=== PATIENT | female | born 1950 | race Caucasian/White ===

== ENCOUNTER 2019-11-04 06:06 | Inpatient (IN) | payer MEDICARE, OTHER, MEDICAID, SELFPAY ==
[2019-10-28 09:54] VITALS: BMI 25.9
[2019-11-04] VITALS (18 sets, daily range): BP systolic 97–145; BP diastolic 45–80; PULSE 77–103; RESP 9–20; TEMP 35.9–36.7; O2SAT 92–100; BMI 25.4
--- NOTE | 2019-11-04 | DI.RAD.S_ITS ---
PROCEDURE: XR LUMBAR SPINE 2-3V INDICATIONS: L4-S1 HWR, L5-S1 TLIF TECHNIQUE: 2 views of the lumbar spine were acquired. COMPARISON: [facility], CT, CT LUMBAR SPINE WITHOUT CONTRAST, 08/13/2019, 9:39. [facility], CR, XR LUMBAR SPINE 2 OR 3 VIEWS, 07/28/2019, 10:44. FINDINGS: There is no discectomy at L5-S1. Previous discectomy at L3-L4 and L4-L5. There is posterior fusion and revision of fusion hardware foam L3-S1. IMPRESSION: Postsurgical changes as described. Dictated by: Dillon James M.D. on 11/04/2019 at 14:52 Approved by: Dillon James M.D. on 11/04/2019 at 14:55
[2019-11-04] MEDS: LACTATED RINGERS 1,000 ML 42 ML IV ×2 (07:33→10:41)
--- NOTE | 2019-11-04 07:40 | PM.PREOP ---
Pre-operative Note Interval Note History & Physical reviewed/Exam performed by Physician: Yes Changes to H&P: No
[2019-11-04] MEDS: CEFAZOLIN 2 GM/100 ML FROZ.PIGGY IV (07:52)
--- NOTE | 2019-11-04 08:28 | SUR.OPER ---
Prone on spine table, head in foam head support, padded chest and pelvic supports, gel pad at knees, lower legs supported by pillows; nipples, genitalia and toes free of pressure, arms secured on foam padded arm boards at <90 degrees abduction. Tape over blanket at thigh secured to table.
[2019-11-04] MEDS: BUPIVACAINE 0.25% W/ EPI 30 ML VIAL INJ (08:40)
[2019-11-04] MEDS: BUPIVACAINE LIPOSOME 266 MG/20 ML VIAL INJ (08:41)
--- NOTE | 2019-11-04 11:39 | P.OP_ITS ---
Operative Date/Time/Diagnoses Date of procedure: 11/04/19 Time of procedure: 08:09 Pre-op diagnosis: 1. L4-5, L5-S1 spinal stenosis 2. Hx of L3-4, L4-5 lumbar fusion with instrumentation 3. L5-S1 spondylosis with radiculopathy Post-op diagnosis: same Procedure & Clinicians Procedure: 1. L5-S1 posterolateral and posterior interbody fusion 2. L5-S1 posterior interbody cage placement 3. L3-4, L4-5 posterior segmental instrumentation removal 4. L3-4, L4-5 revision laminectomy with exploration of fusion 5. L3-4, L4-5, L5-S1 posterior segmental instrumentation with pedicle screw placement 6. L4-5 posterolateral fusion 7. Hornbeck of bone marrow from iliac crest through a separate incision 8. Utilization of microsurgical technique and operating microscope Same procedure as scheduled: Yes Indications: Patient has been having chronic back pain and worsening lumbar radiculopathy. Patient had prior lumbar fusion and was having no symptoms until approximately a year ago. Patient failed multiple conservative management with worsening pain weakness and numbness in her lower extremity. Patient has been having difficulty performing activity of daily living. After discussing risks benefits of treatment options, patient elected proceed with surgery. Surgeon: Geoff Carcamo Tape Fastener Machine Operator: Espinoza Squires Click Yes if Unassisted: No Anesthesia Type: General Operative Notes Closure Type: primary Specimen(s): none sent Prosthetic devices, grafts, tissues, transplants, or devices: Globus revolve screws, Rise cage Applied: catheter Estimated Blood Loss (mL): 100 Blood products transfused: none Procedure in detail: Patient was seen in the preoperative area. Risks and benefits of the surgery was discussed with the patient. Informed consent was obtained from the patient and placed in the chart. Surgical site was marked. Patient was taken to the operative room. General anesthesia was administered. Prophylactic antibiotic was given to the patient less than 30 min before the incision was made. Patient was placed into a prone position on the [place] table. Patient's back was then prepped and draped in the sterile fashion. Time- out was performed at this time. Using patient's previous scar incision was made over the L3-4 L4-5 L5-S1 interval on the right side. Fascia was incised in line with skin incision. Patient's previously placed hardware over the L3-4 L4-5 level was identified by dissecting down to the level the hardware using a Bovie and a Varma. The locking caps which was removed using globus screwdriver. The locking jarocho was then removed from the tulips of the pedicle screws using a Yohana. The pedicle screws were then removed using the screwdriver. The screws were found to have good purchase. The Globus and MARS retractors was then placed into the wound and docked onto the L5 lamina using C-arm guidance. Using microsurgical technique and operating microscope a laminectomy facetectomy was performed by removing the L5 lamina and the L5-S1 facet. The disc space at L5-S1 level was identified next. Patient was found have severe neuroforaminal stenosis secondary to a large facet joint. The stenosis was fully decompressed after the facetectomy was completed which rendered L5-S1 grossly unstable and require a fusion procedure at the same time. And a total diskectomy was performed at L5-S1 level. The endplates were decorticated using a rasp and shaver. The total diskectomy and decortication was performed at L5-S1 level in order to to accomplish a L5-S1 fusion. The local bone from the laminectomy and facetectomy was saved for local bone grafting. After the total diskectomy and decortication was completed, Globus viacell bone graft material was combined with local bone that was harvested earlier. At this time, a separate skin is incision was made over the iliac crest. A Jamshidi needle was inserted into the iliac crest through a separate skin incision. 5 cc of bone marrow aspiration was obtained through the separate skin incision using a Jamshidi needle from the iliac crest. The bone marrow aspiration was combined with local bone and the via cell bone grafting material. The bone grafting material was placed into the L5-S1 interbody space along with a expandable cage. The cage was expanded to its maximum height using the torque limiting screwdriver. At this time a mirror image incision was made on the left side. The fascia was incised in line with the skin incision. Patient's previously placed hardware on the left side was then removed in the same fashion as it was on the right side. The hardware was also found to have good purchase. The fusion mass on the left side was exposed by performing a left-sided hemilaminectomy at L3-4 L4-5 level. The hemilaminectomy was performed using the Kerrison rongeur to undercut the lamina as well removing additional epidural scar tissue for purpose of decompressing the epidural space. The fusion mass was explored and was found have visible motion indicating pseudoarthrosis at L4-5 level and had no motion at L3-4 indicating solid fusion. Globus MARS retractor was inserted and docked onto the L4-5 L5-S1 posterolateral gutter. Using the power drill, posterior- lateral decortication was performed at L4-5 L5-S1 level until bleeding cortical bone was identified. The remaining bone grafting material was placed into the L4-5 L5-S1 posterior lateral gutter he order to accomplish posterolateral fusion at the L4-5 L5-S1 level. Using the double C-arm technique, pedicle screws were placed into the L3, L4 L5 and S1 pedicles bilaterally. This was done by placing the Jamshidi needle into t he pedicles, then placing the guidewires over the Jamshidi needle, and finally placing the cannulated screws over the guidewires bilaterally. After the pedicle screws were placed, 2 titanium rods was locked into the heads of the pedicle screws using locking caps and torque limiting screwdriver. After all the hardware was placed, and confirmed with AP and lateral C-arm imaging, the wound was then irrigated with sterile normal saline and packed with Ray-Nicky gauze for 3 min to accomplish hemostasis. After the gauze was removed the deep fascia was closed with #1 Vicryl suture. The subcutaneous layer was closed with 2-0 Vicryl. The skin was closed with skin manish. Patient tolerated the procedure well. There were no complications. Complications: none Post-operative Condition: stable Disposition: PACU Plan for aftercare: Admit to inpatient hospital
[2019-11-04] MEDS: HYDROMORPHONE 2 MG INJ IV ×4 (12:10→12:33)
[2019-11-04] MEDS: hydrOXYzine 50 MG/ML INJ IM (12:14)
--- NOTE | 2019-11-04 12:34 | SUR.PHASEI ---
Report given to Alexandria ESPARZA .
--- NOTE | 2019-11-04 13:00 | SUR.PHASEI ---
Received report from ISAIAS Garcia. Patient appears comfortable. VSS.
--- NOTE | 2019-11-04 13:02 | SUR.PHASEI ---
Report given to Zehra Acute care RN. Patient OK to transfer.
[2019-11-04] MEDS: SODIUM CHLORIDE 0.9% 1,000 ML 100 ML IV (14:08)
--- NOTE | 2019-11-04 15:13 | CM.DANOTE ---
DCP Brief Assessment Note Patient is a 69 year old female who was admitted today 11/04/19 for TLIF. Pt has MCR and PRE DIM for insurance and her PCP is Dr. Mihaela Sanders. EMR was reviewed. Per Alexandre GOODWIN, pt scheduled for TLIF today. Pt has a hx of previous back surgery in 2016 and was able to d/c home at that time. SW attempted bedside assessment and was off the floor all day in surgery still at 1515. Plan: SW to follow tomorrow for bedside assessment and follow for PT/OT initial eval and recommendations to determine d/c planning needs. DELANEY Marin
--- NOTE | 2019-11-04 15:23 | PC.NURSE ---
Ortho: Pt received from pacu, had 4 doses of dilaudid, sleepy, O2 placed, pt has hx of sleep apnea and would desat to the 80's when she fell asleep. On arrival did drop to about 87-88 and did have O2 on at 2L NC which kept sats at 97% or greater. later able to wean O2 off and sats are 95% currently. pt has denied pain since arrival to floor. Resting quietly at present.
[2019-11-04] MEDS: CEFAZOLIN 1 GM/50 ML FROZ.PIGGY IV (16:51)
[2019-11-04] MEDS: hydrOXYzine pamoate 25 MG CAPSULE PO (18:09)
[2019-11-04] MEDS: OXYCODONE IR 5 MG TABLET 10 MG PO ×2 (18:10→22:10)
[2019-11-04] MEDS: HYDROMORPHONE 0.5 MG INJ IV (19:35)
[2019-11-04] MEDS: SENNOSIDES 8.6 MG TABLET 17.2 MG PO (22:08)
[2019-11-04] MEDS: DOCUSATE 100 MG CAPSULE PO (22:09)
[2019-11-04] MEDS: SERTRALINE 25 MG TABLET PO (22:20)
--- NOTE | 2019-11-04 22:36 | PC.NURSE ---
A&Ox4. pain 04/01, medicated with oxycodone, reassessed 04/01. Administered 0.5mg IV dilaudid, pain down to 4/10 and tolerable. IS teaching done by student RN. LS:clear. 96%RA. Polk patent, draining clear yellow urine. denied any tingling or numbness of arms or legs. pt not oob yet. feet scds on.
--- NOTE | 2019-11-04 23:01 | PC.NURSE ---
Pain Management Patient's goal for pm shift was to manage pain. Patient reported a pain level of 8. Student nurse and primary nurse administered oxycodone Ir 10 mg PO at 181. Patient reported pain had reduced to pain level of 7. Primary nurse administered hydromorphone 0.5 mg IV at 193. Patient reported a pain level of 5 at reassessment. Patient had a turkey sandwich, chocolate ice cream, and jello for a late dinner.
[2019-11-05] VITALS (8 sets, daily range): BP systolic 95–154; BP diastolic 51–92; PULSE 88–97; RESP 12–20; TEMP 36.7–37.9; O2SAT 95–98
[2019-11-05] MEDS: SODIUM CHLORIDE 0.9% 1,000 ML 100 ML IV (00:08)
[2019-11-05] MEDS: CEFAZOLIN 1 GM/50 ML FROZ.PIGGY IV (00:09)
[2019-11-05] MEDS: HYDROMORPHONE 0.5 MG INJ IV ×3 (01:03→12:06)
--- NOTE | 2019-11-05 05:28 | PC.NURSE ---
Pt alert and oriented x4. Turning self in bed. Pain controlled with giving IV dilaudid. Pt denies offer for oxycodone, reports I do not like the way the oxycodone makes me feel. Back dressing saturated at start of shift, dressing changed. Clean dry and intact now. Pt tolerated well. Scds applied. Pt has no complaints at this time
[2019-11-05] MEDS: OXYCODONE IR 5 MG TABLET 10 MG PO ×3 (06:44→20:36)
[2019-11-05 07:06] LABS: Hematocrit 37.4 % (36-46); Hemoglobin 12.5 g/dL (12.0-16.0)
--- NOTE | 2019-11-05 07:39 | PM.PNPO.1 ---
Subjective Subjective Date Patient Seen: 11/05/19 Time Patient Seen: 07:39 Interval history: POD #1 s/p TLIF with Dr. Carcamo. No acute events overnight. Patient complains of pain in her lower back, denies radiation down her legs. Denies numbness, tingling. Has not mobilized with PT. Using paris catheter. Denies fever, chills, chest pain, shortness of breath Exam Vital Signs (past 8 hours): - 11/05/19 00:05 11/05/19 04:55 Temperature 98.0 F 98.7 F Pulse Rate 94 H 88 Respiratory Rate 16 16 Blood Pressure 154/65 H 140/68 Pulse Oximetry 98 97 Oxygen Delivery Method Room Air Oxygen Flow Rate 0 Narrative Exam Narrative: 69 year old female is lying comfortably in bed, in no apparent distress. A&Ox3. Dressing CDI, SCDs and paris catheter in place. Sensory function grossly intact to light touch in LE BL. Dorsalis pedis 2+ BL. Able to actively dorsiflex/plantar flex BL. Calves warm, soft, compressible, non tender to palpation. Objective Labs Result Diagrams: 11/05/19 06:47 Labs: Laboratory Results - last 24 hr 11/05/19 06:47 Hgb 12.5 Hct 37.4 Assessment & Plan Post-op Postoperative Procedures: Procedures Operation Date: 11/04/19 07:45 Actual Procedures Side Surgeon p L4-S1 HWR removal,L5-S1 TLIF,L4-5 exploration of fusion w/poss revision PSF,L3-S1 posterior instru Geoff Carcamo MD Postoperative day: 1 Postoperative plan narrative: Discontinue paris catheter Mobilize with PT Continue current pain control Continue SCDs for DVT management Discharge home likely in next 24-48 hours Time Spent With Patient Time with patient: less than 15 minutes
[2019-11-05] MEDS: DOCUSATE 100 MG CAPSULE PO ×2 (09:13→20:35)
[2019-11-05] MEDS: LEVOTHYROXINE 137 MCG TABLET PO (09:13)
--- NOTE | 2019-11-05 09:50 | PT.IIE ---
Current Diagnoses Other spondylosis with radiculopathy, lumbar region (11/04/19) Spinal stenosis, lumbar region without neurogenic claudication (11/04/19) Arthrodesis status (11/04/19) Surgery Performed Operation Date: 11/04/19 07:45 Actual Procedures p L4-S1 HWR removal,L5-S1 TLIF,L4-5 exploration of fusion w/poss revision PSF,L3-S1 posterior vida Carcamo MD Surgical History (Last Updated 10/28/19 @ 11:47 by Dian Flores RN) H/O wrist surgery (Acute ~2014) H/O: hysterectomy (Acute) History of bilateral tubal ligation (Acute) History of bladder surgery (Acute) History of lumbar fusion (Acute ~2013) History of lumbar spinal fusion (Acute 04/16/16) Hx of bilateral cataract extraction (Acute) Hx of breast augmentation (Acute) Hx of thyroidectomy (Acute) Status post implant removal from both breasts (Acute 10/03/16) Status post implant removal from both breasts (Acute ~11/2018) Medical History (Last Updated 10/29/19 @ 14:59 by Dian Flores RN) Afib (Acute ~2011) Cervical cancer (Acute ~1972) Chronic cough (Acute) Depression (Acute) Fatty liver (Acute) Former smoker (Acute) History of anesthesia reaction (Acute 10/03/16) History of Clostridium difficile infection (Acute ~2017) HLD (hyperlipidemia) (Acute) Sleep apnea (Acute) Thyroid cancer (Acute) Physical Therapy Inpatient Evaluation/Re-Eval M1 PT/OT-IP Prior Functional Status Start: 11/05/19 12:00 Freq: NEEDED Status: Active Protocol: Document 11/05/19 09:50 AB (Rec: 11/05/19 12:15 AB [id number]) Medical Review Prior Functional Status Medical History Reviewed Yes Communication able to make needs known Mobility and Gait pt stated that she is independent with all mobilities and ambulation without AD Social History Household Members significant other Living Arrangements House Number of Floors (Floors) One Floor Number of Stairs To Enter/Railing? 3 steps to enter without rails Home Environment Standard Height Toilet,Walk in Shower,Tub/Shower Home Equipment Front Wheel Walker,Hand Held Shower M2 PT-IP Current Condition Start: 11/05/19 12:00 Freq: NEEDED Status: Active Protocol: Document 11/05/19 09:50 AB (Rec: 11/05/19 12:15 AB [id number]) Physical Therapy Current Condition Current Condition Evaluation Date 11/05/19 Treatment Diagnosis s/p L5S1 posterior fusion; L3- 5 lami; difficulty in walking Onset Date 11/04/2019 Precautions Lumbar Precautions Log Roll,No Twisting,Limit Bending,Lifting Restriction of 10 lbs,Gait Belt above Incisional Area M3 PT-IP Subjective Start: 11/05/19 12:00 Freq: NEEDED Status: Active Protocol: Document 11/05/19 09:50 AB (Rec: 11/05/19 12:15 AB [id number]) Subjective Physical Therapy Visit Type Type Initial Evaluation Visit Start Time 09:50 Visit Stop Time 10:29 Total Visit Minutes 39 Number of NETWORK DIAGNOSTIC SUPPORT SPECIALIST Visits 0 Physical Therapy Visit Comments Patient Comments pt agreeable to do PT Therapy Pain Assessment Pain When Pain Assessed At Rest Pain Present Pain Present Pain Reported Location Left Leg Intensity 5 Scale Used increases to 7/10 with mobility Pain Management Techniques Apply Cold,Re-positioning, Timing of Activity with Medications M4 PT-IP Mobility and Gait Start: 11/05/19 12:00 Freq: NEEDED Status: Active Protocol: Document 11/05/19 09:50 AB (Rec: 11/05/19 12:15 AB [id number]) PT-Bed Mobility Assessment Rolling Type of Rolling Log Rolling Level of Assist Moderate Assistance,1 Person Assistance Supine to Sit Supine to Sit Minimal Assistance,1 Person Assistance PT-Transfer Assessment Sit to and From Stand Sit to and from Stand Minimal Assistance,1 Person Assistance,Use of Upper Extremities Equipment Transfer Assistive Device Gait Belt,Front Wheeled Walker Orthotic/Prosthetic Devices or Brace: No Transfers Transfer Destination Chair Transfer Technique ambulated using FWW Transfer Ability Level of Assist Minimal Assistance,1 Person Assistance,Use of Upper Extremities Comments Mobility Comments reviewed back precautions and log roll bed mobility with pt. completed supine to sit mod A and cues. pt was able to sit on EOB SBA. completed sit to stand min A and cues and pt ambulated in room using FWW ~ 25 ft min A. pt agreed to sit up on chair. positioned pt on chair. call light and table placed within reach. Gait Assessment Gait Gait Assistance Required: Minimum Assistance Distance (Feet) 25 Able to Maintain Weight Bearing Status Yes During Gait Assistive Devices Assistive Device Gait Belt,Front Wheeled Walker Orthotic/Prosthetic Devices or Brace: No Gait Deviations General Gait Pattern Antalgic,Decreased Stride Length,Decreased Feet Clearance Factors Limiting Gait Function Factors Limiting Gait Function Decreased Activity Tolerance, Decreased Strength,Limited Range of Motion,Pain,Poor Balance,Poor Safety Awareness PT-Balance Assessment Sitting Balance and Reactions Static Sitting Balance Ability Good Dynamic Sitting Balance Ability Good Standing Balance and Reactions Static Standing Balance Ability Fair Dynamic Standing Balance Ability Fair Device Used FWW M5 PT-IP Objective Assessments Start: 11/05/19 12:00 Freq: NEEDED Status: Active Protocol: Document 11/05/19 09:50 AB (Rec: 11/05/19 12:15 AB [id number]) Orientation Orientation/Cognition Level of Alertness Alert Orientation Name,Place,Situation Safety Awareness Decreased Safety Awareness Gross Range of Motion Lower Extremity ROM Assessment Within Functional Limits Strength Comments Strength Comments RLE: 3+/5 LLE: 4-/5 Coordination Assessment Gross Coordination Gross Coordination WNL Muscle Tone Muscle Tone WNL Yes M6 PT-IP Treatment Start: 11/05/19 12:00 Freq: NEEDED Status: Active Protocol: Document 11/05/19 09:50 AB (Rec: 11/05/19 12:15 AB [id number]) Physical Therapy Treatment Education Education Provided Precautions,Weight Bearing Status,Post-Op Packet,Safety M7 PT-IP Assessment and Plan Start: 11/05/19 12:00 Freq: NEEDED Status: Active Protocol: Document 11/05/19 09:50 AB (Rec: 11/05/19 12:15 AB [id number]) PT Summary Assessment and Plan Potential Rehabilitation Potential Good Status of Condition at Evaluation Evolving Summary Impairments Pain,ROM,Strength,Balance, Coordination,Sensation,Tone, Cognition,Bed Mobility, Transfers,Gait,Activity Tolerance Assessment Summary pt requiring min A with transfers an ambulation using FWW but did not tolerate much activity due to c/o increasing back pain. pt plans to go home with her significant other to assist her. will conduct caregiver training when appropriate as well as stair climbing training. will continue to assess progress. Goals Bed Mobility Goal Standby Assistance Transfer Goal Standby Assistance,Front Wheeled Walker Gait Goal Standby Assistance,Front Wheel Walker Gait Distance 150 Other Goals up/down 3 steps using SPC/MANAGER CONSTRUCTION CGA Days to Meet Goals 5 Frequency of Treatment Frequency Of Treatment Twice a Day Treatment Plan Physical Therapy Treatment Plan Bed Mobility Training,Transfer Training,Gait Training, Therapeutic Exercise,Balance Retraining,Post Op Education, Discharge Planning,Hot or Cold Pack,Neuromuscular Re-ed, Coordination Retraining,Manual Therapy Other Recommendations and Next Treatment ambulation, stair climbing, Focus caregiver training when appropriate Recommendations To Nursing Amount of Assist Needed 1 Person Assist Discharge Recommendations PT Discharge Recommendations Home with Assistance Transportation Needs at Discharge Private Vehicle
[2019-11-05] MEDS: ACETAMINOPHEN 325 MG TABLET 650 MG PO (10:19)
[2019-11-05] MEDS: hydrOXYzine pamoate 25 MG CAPSULE PO (12:27)
--- NOTE | 2019-11-05 13:05 | PT-IP ANOTE ---
Checked on pt at 1300 who was in bed. Pt stated she's in a lot of pain after walking in the am and requested to have some rest for today and attempt PT again tomorrow morning.
--- NOTE | 2019-11-05 14:40 | OT.IP.EVAL ---
Current Diagnoses Other spondylosis with radiculopathy, lumbar region (11/04/19) Spinal stenosis, lumbar region without neurogenic claudication (11/04/19) Arthrodesis status (11/04/19) Surgery Performed Operation Date: 11/04/19 07:45 Actual Procedures p L4-S1 HWR removal,L5-S1 TLIF,L4-5 exploration of fusion w/poss revision PSF,L3-S1 posterior vida Carcamo MD Past Medical History (Last Updated 10/29/19 @ 14:59 by Dian Flores, RN) Afib (Acute ~2011) Cervical cancer (Acute ~1972) Chronic cough (Acute) Depression (Acute) Fatty liver (Acute) Former smoker (Acute) History of anesthesia reaction (Acute 10/03/16) History of Clostridium difficile infection (Acute ~2017) HLD (hyperlipidemia) (Acute) Sleep apnea (Acute) Thyroid cancer (Acute) Surgical History (Last Updated 10/28/19 @ 11:47 by Dian Flores RN) H/O wrist surgery (Acute ~2014) H/O: hysterectomy (Acute) History of bilateral tubal ligation (Acute) History of bladder surgery (Acute) History of lumbar fusion (Acute ~2013) History of lumbar spinal fusion (Acute 04/16/16) Hx of bilateral cataract extraction (Acute) Hx of breast augmentation (Acute) Hx of thyroidectomy (Acute) Status post implant removal from both breasts (Acute 10/03/16) Status post implant removal from both breasts (Acute ~11/2018) Occupational Therapy Inpatient Evaluation/Re-Eval M1 PT/OT-IP Prior Functional Status Start: 11/05/19 12:00 Freq: NEEDED Status: Active Protocol: Document 11/05/19 14:40 VINCENT (Rec: 11/05/19 15:08 VINCENT [id number]) Medical Review Prior Functional Status Medical History Reviewed Yes Diet/Fluid Consistency Regular Communication WNL Mobility and Gait Pt states she is independent with ambulation without a device. Activities of Daily Living and IADL's Pt states she is independent with all self care, IADLS, drives. 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 3 steps to enter without rails Home Environment Standard Height Toilet,Walk in Shower,Tub/Shower Home Equipment Front Wheel Walker,Shower Seat without Backrest,Hand Held Shower,Matcher Operator Employment Status Retired Additional Social History Comment S.O. taking one day off work, niece will stay with pt for 3 days after S.O. returns to work M2 OT-IP Current Condition Start: 11/05/19 08:28 Freq: Status: Active Protocol: Document 11/05/19 14:40 PJM (Rec: 11/05/19 15:08 PJM [id number]) Occupational Therapy Current Condition Current Condition Evaluation Date 11/05/19 Treatment Diagnosis decreased ADLS, mobility s/p L4-S1 hardware removal, L5-S1 TLIF Diagnosis Onset Date 11/04/19 Post Operative Precautions Lumbar Precautions Log Roll,No Twisting,Limit Bending,Lifting Restriction of 10 lbs,Gait Belt above Incisional Area M3 OT- IP Subjective and Pain Start: 11/05/19 08:28 Freq: Status: Active Protocol: Document 11/05/19 14:40 PJM (Rec: 11/05/19 15:08 PJM [id number]) OT- Subjective Occupational Therapy Visit Type Type Initial Evaluation Visit Start Time 13:58 Visit Stop Time 14:40 Total Visit Minutes 42 Notes Pt drowsy from pain meds this session. Occupational Therapy Visit Comments Patient Comments The nurse has given me a lot of pain medicine. It's making me feel a little loopy. Patient/Caregiver Goals to return to independent living at home with less back/ leg pain OT Pain Assessment Pain When Pain Assessed After Treatment Pain Present Pain Present Pain Reported Location Bilateral Anterior Thigh Intensity 3 Scale Used increases to 8/9 with activity Description Aching,Acute Left Leg Scale Used Numeric (1 - 10) M4 OT- IP ADL's Start: 11/05/19 08:28 Freq: Status: Active Protocol: Document 11/05/19 14:40 PJM (Rec: 11/05/19 15:08 PJ [id number]) OT [id number] General Evaluation Self-Feeding Ability Independent OT ADL-Grooming General Evaluation Grooming Ability Standby Assistance Comments OT Grooming Comments washing hands at sink with FWW , mod verbal cues for FWW use and body mechanics OT ADL-Oral Care Comments Oral Care Comments did not occur this session OT ADL-Dressing Assistive Devices Dressing Assistive Devices Matcher Operator Comments OT Dressing Comments Began education re: adapted techniques with maintenance repairman and sock aid.Pt declined sock aid as she rarely wears socks and will wear Birkenstocks at home . Pt has maintenance repairman from previous surgeries. OT ADL-Toileting General Evaluation Toileting Ability Standby Assistance Areas Needing Assistance Perform Perineal Hygiene Comments OT Toileting Comments mod verbal ceus for body mechanics OT ADL-Bathing Comments OT Bathing Comments to be assessed M5 OT- IP IADL's Start: 11/05/19 08:28 Freq: Status: Active Protocol: Document 11/05/19 14:40 PJM (Rec: 11/05/19 15:08 [facility] [id number]) OT-Instrumental Activities of Daily Living Deficits IADL Deficits Identified Deficits Home Safety Awareness Awareness of Need for Assistance at Home Good Awareness Ability to Problem Solve Emergency Able to Problem Solve Situations Medication Management Medication Management No Deficits Identified Money Management Money Management No Deficits Identified Meal Preparation Meal Preparation Caregiver Provides Assist Meal Preparation Comments S.O. to assist until pt able Pharmacy Operations Specialist Pharmacy Operations Specialist Caregiver Provides Assist Pharmacy Operations Specialist Comments S.O. to assist until pt able Driving Driving Caregiver Provides Assist Driving Comments S.O. to assist until pt able M6 OT- IP Functional Cognition Start: 11/05/19 08:28 Freq: Status: Active Protocol: Document 11/05/19 14:40 PJM (Rec: 11/05/19 15:08 [facility] [id number]) Cognitive Factors Limiting Selfcare Function Cognitive Ability Level of Alertness Drowsy Patient Orientation Name,Age,Birthday,Month,Date, Year,Day of Week,Place, Situation Attention Span Ability Capable of Focused Attention Ability to Follow Commands Able to Follow One Step Commands Safety Awareness Decreased Ability to Apply Precautions Cognitive Comments Cognitive Assessment Comments Pt verbalizes lumbar precautions but needs mod verbal cues to follow them duirng functional tasks. OT- Vision and Hearing OT- Hearing Assessment OT- Hearing Assessment WFL OT- Vision Assessment Visual Acuity WFL,Glasses For Reading M7 OT- IP Mobility and Balance Start: 11/05/19 08:28 Freq: Status: Active Protocol: Document 11/05/19 14:40 PJM (Rec: 11/05/19 15:08 [facility] [id number]) OT- Bed Mobility Assessment Rolling Type of Rolling Log Rolling,Roll to Right,Roll to Left Level of Assistance Contact Guard Assistance, Bedrails Supine to Sit Supine to Sit Assist Contact Guard Assistance Sit to Supine Sit to Supine Assist Contact Guard Assistance Scooting Scooting to Edge of Bed Standby Assistance OT-Transfer Assessment Sit to and From Stand Sit to and from Stand Contact Guard Assistance,1 Person Assistance Transfers Transfer Ability Contact Guard Assistance,1 Person Assistance Technique Transfer Destination Bed,Toilet Transfer Technique Stand Step Pivot Devices Transfer Assistive Devices Gait Belt,Front Wheeled Walker Comments Mobility Comments pt needs mod verbal cues to avoid twisting when log rolling OT- Gait Assessment Gait Gait Assistance Required: Contact Guard Assist Distance (Feet) 20 Assistive Devices Assistive Device Gait Belt,Front Wheeled Walker Comments Gait Ability Comments no LOB noted OT- Balance Assessment Sitting Balance and Reactions Static Sitting Balance Ability Good Dynamic Sitting Balance Ability Good Standing Balance and Reactions Static Standing Balance Ability Good Dynamic Standing Balance Ability Good Comments Other Balance Tests/Deviations/Treatment during toileting and grooming : at sink M8 OT- IP Objective Assessments Start: 11/05/19 08:28 Freq: Status: Active Protocol: Document 11/05/19 14:40 PJM (Rec: 11/05/19 15:08 PJM [id number]) OT Gross Range of Motion Upper Extremity Range of Motion Assessment Within Functional Limits OT Strength Upper Extremity Strength Assessment Within Functional Limits Hand Investigative Research Specialist Strength Hand Dominance Right OT- Coordination Assessment Comments Coordination Comments BUE WNL OT-Muscle Tone Assessment Muscle Tone WNL Yes OT Sensation Assessment Comments Summary Comments BUE WNL Edema Edema Absent M9 OT- IP Assessment and Plan Start: 11/05/19 08:28 Freq: Status: Active Protocol: Document 11/05/19 14:40 PJM (Rec: 11/05/19 15:08 PJM [id number]) OT Summary Assessment and Plan Potential Rehabilitation Potential Good Analytic Complexity at Evaluation Low Summary OT Impairments Pain,Functional Mobility, Dressing,Toileting,Bathing, Toilet Transfers,Shower Transfers,Activity Tolerance Assessment Summary Low complexity OT assessment completed on this 69 yr old female s/p L4-S1 hardware removal with L5-S1 TLIF with significant post op B anterior thigh pain. PMHX includes 2 previous lumbar surgeries. Began education re: lumbar spine precautions. Pt able to verbalize precautions but needs mod verbal cues to avoid twisting and bending during functional tasks. Pt currently has performance deficits in activity tolerance due to B thigh pain, lower body dressing, bathing and toileting. Plan 1-2 additional OT visits to address the goals below.Anticipate pt will be able to d/c home with assist from working S.O. and niece who will be here for 3 days next week. Goals Grooming Goal Independent Dressing Goal Independent,Matcher Operator Toileting Goal Independent Bathing Goal Standby Assistance Toilet Transfer Goal Independent,ADA High Toilet Shower Transfer Goal Standby Assistance Patient/Caregiver Education Goal Demonstrate Post-Op Precautions,Demonstrate Energy Conservation and Pacing, Caregiver Independent Assisting Patient OT-Other Goals Grooming to be done standing at sink with good body mechanics and safety awareness . Days to Meet Goals 2 Frequency of Treatment Frequency Of Treatment Once a Day Treatment Plan OT Treatment Plan ADL Training,Functional Mobility,Patient/Family Education,Discharge Planning Discharge Recommendations OT Discharge Recommendations Home with Assistance Home Equipment Needs pt to borrow shower seat Transportation Needs at Discharge Private Vehicle
--- NOTE | 2019-11-05 18:41 | PC.NURSE ---
Polk Catheter Insertion After two attempts, patient had no success voiding. Patient reported feeling bloated and it really hurts. Bladder scan at 1717 measured 590 mL. Bladder was distended. Polk catheter 16 Fr inserted by student nurse and clinical instructor at 1745. Catheter clamped to prevent bladder spasm. Catheter tubing secured to right thigh. Patient reports relief and tolerated procedure well.
--- NOTE | 2019-11-05 20:18 | PC.NURSE ---
Addendum entered by Jaci Tillman R.N. 11/05/19 22:03: Condition remains essentially unchanged, Call light w/in reach, bed alarm on for pt safety. Continue w/plan of care. Addendum entered by Jaci Tillman R.N. 11/05/19 20:39: This RN agrees with the findings of the SN as documented. Original Note: Pt was c/o discomfort earlier in shift. Bladder scan = 590. Polk cath placed, 700cc returned. Pt feeling much better. Lungs clear, SpO2 98% RA HL intact/patent Surgical dsg CDI Satisfactory post op course. Call light w/in reach, bed alarm on for pt safety. Continue w/plan of care.
[2019-11-05] MEDS: SENNOSIDES 8.6 MG TABLET 17.2 MG PO (20:35)
[2019-11-05] MEDS: SERTRALINE 25 MG TABLET PO (20:38)
[2019-11-06 00:30] VITALS: BP 120/73; PULSE 97; RESP 18; TEMP 38.1; O2SAT 94
[2019-11-06] MEDS: OXYCODONE IR 5 MG TABLET 10 MG PO (02:00)
[2019-11-06 03:20] VITALS: BP 117/60; PULSE 110; RESP 16; TEMP 37.7; O2SAT 95
--- NOTE | 2019-11-06 06:19 | PC.NURSE ---
Removed paris that was place on evening shift at 0615, patient tolerated well.
--- NOTE | 2019-11-06 08:36 | PM.PNPO.1 ---
Subjective Subjective Date Patient Seen: 11/06/19 Time Patient Seen: 08:37 Interval history: POD #2 s/p TLIF w Dr. Carcamo. Patient complains of worsening pain in her lower back and legs bilaterally. Continues to have numbness in her anterior L thigh. Pain is being controlled with oxycodone and tylenol. Last night had paris placed, shift records 2775 mL output. Paris was removed at 6 am. Patient has not voided since. Mobilizing with PT. Denies fever, chills, chest pain, shortness of breath, pain in calves, urinary/bowel incontinence Exam Vital Signs (past 8 hours): - 11/06/19 03:20 Temperature 99.8 F H Pulse Rate 110 H Respiratory Rate 16 Blood Pressure 117/60 Pulse Oximetry 95 Oxygen Delivery Method Room Air Oxygen Flow Rate 0 Narrative Exam Narrative: 69 year old female is sitting comfortably in chair, in no apparent distress. A&Ox3. Dressing has moderate serosanguineous drainage. Sensory function grossly intact to light touch in LE BL, except anterior L thigh. Able to actively dorsiflex/plantar flex BL. Dorsalis pedis 2+ BL. Calves warm, soft, compressible, non tender to palpation. Objective Labs Result Diagrams: 11/05/19 06:47 Assessment & Plan Post-op Postoperative Procedures: Procedures Operation Date: 11/04/19 07:45 Actual Procedures Side Surgeon p L4-S1 HWR removal,L5-S1 TLIF,L4-5 exploration of fusion w/poss revision PSF,L3-S1 posterior instru Geoff Carcamo MD Postoperative plan narrative: Change in pain management - discontinued oxycodone, prescribed dilaudid Dressing change ordered Mobilize with PT Monitor voiding Discharge home in next 24-48 hours Time Spent With Patient Time with patient: less than 15 minutes
[2019-11-06] MEDS: MAGNESIUM HYDROXIDE 30 ML UDC PO (08:50)
[2019-11-06] MEDS: HYDROMORPHONE 4 MG TABLET PO (08:54)
[2019-11-06] MEDS: LEVOTHYROXINE 137 MCG TABLET PO (08:54)
[2019-11-06] MEDS: ACETAMINOPHEN 325 MG TABLET 650 MG PO (08:54)
[2019-11-06] MEDS: DOCUSATE 100 MG CAPSULE PO ×2 (08:54→20:09)
[2019-11-06 09:18] VITALS: BP 119/65; PULSE 97; RESP 17; TEMP 37.1; O2SAT 95
--- NOTE | 2019-11-06 10:16 | OT.IPNOTE ---
Attempted to see pt for showering, however pt just receiving her breakfast. Check back with pt at 10AM and pt is bed and not feeling well and not wanting to shower at this time.
--- NOTE | 2019-11-06 10:29 | PT.IPTN ---
Current Diagnoses Other spondylosis with radiculopathy, lumbar region (11/04/19) Spinal stenosis, lumbar region without neurogenic claudication (11/04/19) Arthrodesis status (11/04/19) Surgery Performed Operation Date: 11/04/19 07:45 Actual Procedures p L4-S1 HWR removal,L5-S1 TLIF,L4-5 exploration of fusion w/poss revision PSF,L3-S1 posterior vida Carcamo MD Physical Therapy Treatment Note M2 PT-IP Current Condition Start: 11/05/19 12:00 Freq: NEEDED Status: Active Protocol: Document 11/05/19 09:50 AB (Rec: 11/05/19 12:15 AB [id number]) Physical Therapy Current Condition Current Condition Evaluation Date 11/05/19 Treatment Diagnosis s/p L5S1 posterior fusion; L3- 5 lami; difficulty in walking Onset Date 11/04/2019 Precautions Lumbar Precautions Log Roll,No Twisting,Limit Bending,Lifting Restriction of 10 lbs,Gait Belt above Incisional Area M3 PT-IP Subjective Start: 11/05/19 12:00 Freq: NEEDED Status: Active Protocol: Document 11/06/19 10:29 AB (Rec: 11/06/19 14:08 AB [id number]) Subjective Physical Therapy Visit Type Type Treatment Note Visit Start Time 10:29 Visit Stop Time 10:54 Total Visit Minutes 25 Number of WOOD FENCE INSTALLER Visits 0 Physical Therapy Visit Comments Patient Comments pt agreeable to do PT Therapy Pain Assessment Pain When Pain Assessed At Rest Pain Present Pain Present Pain Reported Location Lower Back Intensity 4 Scale Used Numeric (1 - 10) Pain Management Techniques Re-positioning,Timing of Activity with Medications M4 PT-IP Mobility and Gait Start: 11/05/19 12:00 Freq: NEEDED Status: Active Protocol: Document 11/06/19 10:29 AB (Rec: 11/06/19 14:08 AB [id number]) PT-Bed Mobility Assessment Supine to Sit Supine to Sit Minimal Assistance Sit to Supine Sit to Supine Standby Assistance PT-Transfer Assessment Sit to and From Stand Sit to and from Stand Minimal Assistance,1 Person Assistance,Use of Upper Extremities Equipment Transfer Assistive Device Gait Belt,Front Wheeled Walker Orthotic/Prosthetic Devices or Brace: No Transfers Transfer Destination Toilet Transfer Technique ambulated using FWW Transfer Ability Level of Assist Contact Guard Assistance, Minimal Assistance,1 Person Assistance,Use of Upper Extremities Comments Mobility Comments pt agreed to get up. completed supine to sit log roll min A and cues. completed sit to stand min A and cues and pt ambulated to the toilet using FWW CGA to min A. pt was able to maintain standing CGA while completing hygiene care. completed sit to stand from the toilet min A and cues and ambulated to the sink CGA to min A and cues and completed handwashing. pt ambulated in room ~ 30 ft using FWW. requested to brush her teeth and maintained standing by the sink using FWW for support CGA while completing grooming care. pt requested to go back to bed afterwards and ambulated using FWW CGA to min A completed sit to supine SBA. positioned pt in bed. call light and table placed within reach. Gait Assessment Gait Gait Assistance Required: Contact Guard Assist,Minimum Assistance Distance (Feet) 30 Able to Maintain Weight Bearing Status Yes During Gait Assistive Devices Assistive Device Gait Belt,Front Wheeled Walker Orthotic/Prosthetic Devices or Brace: No Gait Deviations General Gait Pattern Antalgic,Decreased Stride Length,Decreased Feet Clearance Factors Limiting Gait Function Factors Limiting Gait Function Decreased Activity Tolerance, Decreased Strength,Limited Range of Motion,Pain,Poor Balance,Poor Safety Awareness Comments Gait Comments pls refer to mobility section for details M5 PT-IP Objective Assessments Start: 11/05/19 12:00 Freq: NEEDED Status: Active Protocol: Document 11/05/19 09:50 AB (Rec: 11/05/19 12:15 AB [id number]) Orientation Orientation/Cognition Level of Alertness Alert Orientation Name,Place,Situation Safety Awareness Decreased Safety Awareness Gross Range of Motion Lower Extremity ROM Assessment Within Functional Limits Strength Comments Strength Comments RLE: 3+/5 LLE: 4-/5 Coordination Assessment Gross Coordination Gross Coordination WNL Muscle Tone Muscle Tone WNL Yes M6 PT-IP Treatment Start: 11/05/19 12:00 Freq: NEEDED Status: Active Protocol: Document 11/06/19 10:29 AB (Rec: 11/06/19 14:08 AB [id number]) Physical Therapy Treatment Education Education Provided Precautions,Safety M7 PT-IP Assessment and Plan Start: 11/05/19 12:00 Freq: NEEDED Status: Active Protocol: Document 11/06/19 10:29 AB (Rec: 02/14/20 14:08 AB [id number]) PT Summary Assessment and Plan Potential Rehabilitation Potential Good Summary Impairments Pain,ROM,Strength,Balance, Coordination,Sensation,Tone, Cognition,Bed Mobility, Transfers,Gait,Activity Tolerance Progress Towards Goals Slow Progress due to Pain Assessment Summary pt requires CGA to min A with mobility and unable to tolerate much with c/o pain. caregiver training will be conducted when appropriate as well as stair climbing training. will continue to assess progress. Goals Bed Mobility Goal Standby Assistance Transfer Goal Standby Assistance,Front Wheeled Walker Gait Goal Standby Assistance,Front Wheel Walker Gait Distance 150 Other Goals up/down 3 steps using SPC/REVERSE UNIT OPERATOR FISHERMAN CGA Days to Meet Goals 5 Frequency of Treatment Frequency Of Treatment Twice a Day Treatment Plan Physical Therapy Treatment Plan Bed Mobility Training,Transfer Training,Gait Training, Therapeutic Exercise,Balance Retraining,Post Op Education, Discharge Planning,Hot or Cold Pack,Neuromuscular Re-ed, Coordination Retraining,Manual Therapy Other Recommendations and Next Treatment ambulation, stair climbing, Focus caregiver training when appropriate Recommendations To Nursing Amount of Assist Needed 1 Person Assist Discharge Recommendations PT Discharge Recommendations Home with Assistance Transportation Needs at Discharge Private Vehicle
--- NOTE | 2019-11-06 10:52 | PC.NURSE ---
Day shift: Per IMLAD Lozoya ok to change dressing to another Coversite PRN and please change prior to d/c from hospital.
--- NOTE | 2019-11-06 11:51 | OT.IP.TRT ---
Current Diagnoses Other spondylosis with radiculopathy, lumbar region (11/04/19) Spinal stenosis, lumbar region without neurogenic claudication (11/04/19) Arthrodesis status (11/04/19) Surgery Performed Operation Date: 11/04/19 07:45 Actual Procedures p L4-S1 HWR removal,L5-S1 TLIF,L4-5 exploration of fusion w/poss revision PSF,L3-S1 posterior vida Carcamo MD Occupational Therapy Treatment Note M2 OT-IP Current Condition Start: 11/05/19 08:28 Freq: Status: Active Protocol: Document 11/05/19 14:40 [facility] (Rec: 11/05/19 15:08 [facility] [id number]) Occupational Therapy Current Condition Current Condition Evaluation Date 11/05/19 Treatment Diagnosis decreased ADLS, mobility s/p L4-S1 hardware removal, L5-S1 TLIF Diagnosis Onset Date 11/04/19 Post Operative Precautions Lumbar Precautions Log Roll,No Twisting,Limit Bending,Lifting Restriction of 10 lbs,Gait Belt above Incisional Area M3 OT- IP Subjective and Pain Start: 11/05/19 08:28 Freq: Status: Active Protocol: Document 11/06/19 13:23 [facility] (Rec: 11/06/19 13:38 [facility] [id number]) OT- Subjective Occupational Therapy Visit Type Type Treatment Note Visit Start Time 11:09 Visit Stop Time 11:51 Total Visit Minutes 42 Occupational Therapy Visit Comments Patient Comments Pt agreeable to shower after getting pain medications. Patient/Caregiver Goals Pt wanting to go home. OT Pain Assessment Pain When Pain Assessed At Rest Pain Present Pain Present Denied Pain M4 OT- IP ADL's Start: 11/05/19 08:28 Freq: Status: Active Protocol: Document 11/06/19 13:23 [facility] (Rec: 11/06/19 13:38 [facility] [id number]) OT NHN-[id number]-[id number] General Evaluation Self-Feeding Ability Independent OT ADL-Grooming General Evaluation Grooming Ability Standby Assistance OT ADL-Dressing General Eval Upper Body Dressing Ability Standby Assistance Lower Body Dressing Ability Standby Assistance Comments OT Dressing Comments Pt able to comfortable cross her legs to jefry her socks. OT ADL-Toileting General Evaluation Toileting Ability Standby Assistance Areas Needing Assistance Perform Perineal Hygiene Comments OT Toileting Comments Pt having a little difficulty to reach back for completeness for pericare needs. Educated pt may want to get a toilet aid. OT ADL-Bathing Bathing Type Bathing Type Shower General Evaluation Bathing Ability Minimal Assistance Areas Needing Assistance Wash/Dry Back Devices Bathing Equipment Shower Chair with Arms,Grab Bars Comments OT Bathing Comments Pt needing assist to help dry her back. VC to slow down. M5 OT- IP IADL's Start: 11/05/19 08:28 Freq: Status: Active Protocol: Document 11/05/19 14:40 [facility] (Rec: 11/05/19 15:08 [facility] [id number]) OT-Instrumental Activities of Daily Living Deficits IADL Deficits Identified Deficits Home Safety Awareness Awareness of Need for Assistance at Home Good Awareness Ability to Problem Solve Emergency Able to Problem Solve Situations Medication Management Medication Management No Deficits Identified Money Management Money Management No Deficits Identified Meal Preparation Meal Preparation Caregiver Provides Assist Meal Preparation Comments S.O. to assist until pt able Theoretical Physics Teacher Theoretical Physics Teacher Caregiver Provides Assist Theoretical Physics Teacher Comments S.O. to assist until pt able Driving Driving Caregiver Provides Assist Driving Comments S.O. to assist until pt able M6 OT- IP Functional Cognition Start: 11/05/19 08:28 Freq: Status: Active Protocol: Document 11/06/19 13:23 [facility] (Rec: 11/06/19 13:38 [facility] [id number]) Cognitive Factors Limiting Selfcare Function Cognitive Ability Level of Alertness Alert Patient Orientation Name,Age,Birthday,Month,Date, Year,Day of Week,Place, Situation Attention Span Ability Capable of Focused Attention Ability to Follow Commands Able to Follow One Step Commands Safety Awareness Decreased Ability to Apply Precautions Cognitive Comments Cognitive Assessment Comments Pt still needing MODA to help incorporate back precautions. Pt tends to want to try to twist. Pt needing safety cues, cues to do one thing at a time. Pt trying to carry her grooming case while walking with FWW. M7 OT- IP Mobility and Balance Start: 11/05/19 08:28 Freq: Status: Active Protocol: Document 11/06/19 13:23 [facility] (Rec: 11/06/19 13:38 [facility] [id number]) OT- Bed Mobility Assessment Rolling Type of Rolling Log Rolling,Roll to Right,Roll to Left Level of Assistance Standby Assistance Supine to Sit Supine to Sit Assist Standby Assistance Sit to Supine Sit to Supine Assist Standby Assistance OT-Transfer Assessment Sit to and From Stand Sit to and from Stand Standby Assistance,Contact Guard Assistance,1 Person Assistance Transfers Transfer Ability Standby Assistance,Contact Guard Assistance Technique Transfer Destination Bed,Shower Stall,Toilet Transfer Technique Stand Step Pivot Devices Transfer Assistive Devices Gait Belt,Front Wheeled Walker Comments Mobility Comments Pt needing to slow down and think things through for back precautions and safety. OT- Balance Assessment Sitting Balance and Reactions Static Sitting Balance Ability Good Dynamic Sitting Balance Ability Good Standing Balance and Reactions Static Standing Balance Ability Good Dynamic Standing Balance Ability Good M8 OT- IP Objective Assessments Start: 11/05/19 08:28 Freq: Status: Active Protocol: Document 11/05/19 14:40 [facility] (Rec: 11/05/19 15:08 [facility] [id number]) OT Gross Range of Motion Upper Extremity Range of Motion Assessment Within Functional Limits OT Strength Upper Extremity Strength Assessment Within Functional Limits Hand Package Dyer Strength Hand Dominance Right OT- Coordination Assessment Comments Coordination Comments BUE WNL OT-Muscle Tone Assessment Muscle Tone WNL Yes OT Sensation Assessment Comments Summary Comments BUE WNL Edema Edema Absent M9 OT- IP Assessment and Plan Start: 11/05/19 08:28 Freq: Status: Active Protocol: Document 11/06/19 13:23 [facility] (Rec: 11/06/19 13:38 [facility] [id number]) OT Summary Assessment and Plan Potential Rehabilitation Potential Good Analytic Complexity at Evaluation Low Summary OT Impairments Pain,Functional Mobility, Dressing,Toileting,Bathing, Toilet Transfers,Shower Transfers,Activity Tolerance Progress Towards Goals Progressing Toward Goals Assessment Summary Pt able to tolerate a shower today and doing better with functional mobility. Pt still needing MOD vc for safety awareness for back precautions . Suggested pt to post back precautions around the house to remind her. Pt to have supportive friend stay with her initially. Goals Grooming Goal Independent Dressing Goal Independent,Physical Chemistry Professor Toileting Goal Independent Bathing Goal Standby Assistance Toilet Transfer Goal Independent,ADA High Toilet Shower Transfer Goal Standby Assistance Patient/Caregiver Education Goal Demonstrate Post-Op Precautions,Demonstrate Energy Conservation and Pacing, Caregiver Independent Assisting Patient Days to Meet Goals 1 Frequency of Treatment Frequency Of Treatment Once a Day Treatment Plan OT Treatment Plan ADL Training,Functional Mobility,Patient/Family Education,Discharge Planning Discharge Recommendations OT Discharge Recommendations Home with Assistance Home Equipment Needs pt to borrow shower seat, toilet aid Transportation Needs at Discharge Private Vehicle
[2019-11-06 14:00] VITALS: BP 114/51; PULSE 86; RESP 15; TEMP 36.8; O2SAT 97
[2019-11-06 16:00] VITALS: BP 128/71; PULSE 93; RESP 20; TEMP 36.6; O2SAT 96
--- NOTE | 2019-11-06 16:22 | PT.IPTN ---
Current Diagnoses Other spondylosis with radiculopathy, lumbar region (11/04/19) Spinal stenosis, lumbar region without neurogenic claudication (11/04/19) Arthrodesis status (11/04/19) Surgery Performed Operation Date: 11/04/19 07:45 Actual Procedures p L4-S1 HWR removal,L5-S1 TLIF,L4-5 exploration of fusion w/poss revision PSF,L3-S1 posterior vida Carcamo MD Physical Therapy Treatment Note M2 PT-IP Current Condition Start: 11/05/19 12:00 Freq: NEEDED Status: Active Protocol: Document 11/05/19 09:50 [facility] (Rec: 11/05/19 12:15 AB [id number]) Physical Therapy Current Condition Current Condition Evaluation Date 11/05/19 Treatment Diagnosis s/p L5S1 posterior fusion; L3- 5 lami; difficulty in walking Onset Date 11/04/2019 Precautions Lumbar Precautions Log Roll,No Twisting,Limit Bending,Lifting Restriction of 10 lbs,Gait Belt above Incisional Area M3 PT-IP Subjective Start: 11/05/19 12:00 Freq: NEEDED Status: Active Protocol: Document 11/06/19 16:22 [facility] (Rec: 11/06/19 17:53 AB [id number]) Subjective Physical Therapy Visit Type Type Treatment Note Visit Start Time 16:22 Visit Stop Time 16:39 Total Visit Minutes 17 Number of SALES AND SERVICE ENGINEER Visits 0 Physical Therapy Visit Comments Patient Comments pt agreeable to do PT Therapy Pain Assessment Pain When Pain Assessed At Rest Pain Present Pain Present Pain Reported Location Left Leg Intensity 7 Scale Used Numeric (1 - 10) M4 PT-IP Mobility and Gait Start: 11/05/19 12:00 Freq: NEEDED Status: Active Protocol: Document 11/06/19 16:22 [facility] (Rec: 11/06/19 17:53 AB [id number]) PT-Bed Mobility Assessment Rolling Type of Rolling Log Rolling Level of Assist Standby Assistance Supine to Sit Supine to Sit Standby Assistance PT-Transfer Assessment Sit to and From Stand Sit to and from Stand Contact Guard Assistance,1 Person Assistance,Use of Upper Extremities Equipment Transfer Assistive Device Gait Belt,Front Wheeled Walker Orthotic/Prosthetic Devices or Brace: No Comments Mobility Comments pt SBA with bed mobility but requires cues to do log roll and maintain back precautions. completed sit to stand CGA and cues. ambulated ~ 75 ft using FWW CGA to min A and cues. completed up/down 3 steps using bilateral rails CGA. pt requested to go back to bed afterwards. completed sit to supine SBA. positioned in bed. call light and table placed within reach. Set up caregiver training tomorrow at 10am. Gait Assessment Gait Gait Assistance Required: Contact Guard Assist,Minimum Assistance Distance (Feet) 75 Able to Maintain Weight Bearing Status Yes During Gait Assistive Devices Assistive Device Gait Belt,Front Wheeled Walker Gait Deviations General Gait Pattern Antalgic,Decreased Stride Length,Decreased Feet Clearance Factors Limiting Gait Function Factors Limiting Gait Function Decreased Activity Tolerance, Decreased Strength,Limited Range of Motion,Pain,Poor Balance,Poor Safety Awareness Comments Gait Comments pls refer to mobility section for details Stair Climbing Assessment Evaluation Level of Assist On Stairs Contact Guard Assistance Devices Stair Climbing Assistive Devices Left Railing,Right Railing Technique/Endurance Stair Climbing Direction Ascend and Descend Stair Climbing Technique Step to Step Number of Steps Climbed 3 Stair Climbing Set # Repetitions (reps) 1 M5 PT-IP Objective Assessments Start: 11/05/19 12:00 Freq: NEEDED Status: Active Protocol: Document 11/05/19 09:50 [facility] (Rec: 11/05/19 12:15 [facility] [id number]) Orientation Orientation/Cognition Level of Alertness Alert Orientation Name,Place,Situation Safety Awareness Decreased Safety Awareness Gross Range of Motion Lower Extremity ROM Assessment Within Functional Limits Strength Comments Strength Comments RLE: 3+/5 LLE: 4-/5 Coordination Assessment Gross Coordination Gross Coordination WNL Muscle Tone Muscle Tone WNL Yes M6 PT-IP Treatment Start: 11/05/19 12:00 Freq: NEEDED Status: Active Protocol: Document 11/06/19 16:22 [facility] (Rec: 11/06/19 17:53 AB [id number]) Physical Therapy Treatment Education Education Provided Precautions,Safety M7 PT-IP Assessment and Plan Start: 11/05/19 12:00 Freq: NEEDED Status: Active Protocol: Document 11/06/19 16:22 [facility] (Rec: 11/06/19 17:53 AB [id number]) PT Summary Assessment and Plan Potential Rehabilitation Potential Good Summary Impairments Pain,ROM,Strength,Balance, Coordination,Sensation,Tone, Cognition,Bed Mobility, Transfers,Gait,Activity Tolerance Progress Towards Goals Slow Progress due to Pain Assessment Summary pt continues to c/o increase pain limiting mobility. requires CGA to min A with ambulation using FWW and unable to tolerate much activity. d/c plan depending if caregiver will be able to assist pt safely. caregiver training set up for tomorrow at 10 am. will continue to assess mobility progress. Goals Bed Mobility Goal Standby Assistance Transfer Goal Standby Assistance,Front Wheeled Walker Gait Goal Standby Assistance,Front Wheel Walker Gait Distance 150 Other Goals up/down 3 steps using SPC/BUSINESS ANALYST INTERN CGA Days to Meet Goals 5 Frequency of Treatment Frequency Of Treatment Twice a Day Treatment Plan Physical Therapy Treatment Plan Bed Mobility Training,Transfer Training,Gait Training, Therapeutic Exercise,Balance Retraining,Post Op Education, Discharge Planning,Hot or Cold Pack,Neuromuscular Re-ed, Coordination Retraining,Manual Therapy Other Recommendations and Next Treatment ambulation, stair climbing, Focus caregiver training when appropriate Recommendations To Nursing Amount of Assist Needed 1 Person Assist Discharge Recommendations PT Discharge Recommendations Home with Assistance Transportation Needs at Discharge Private Vehicle
--- NOTE | 2019-11-06 16:29 | CM.DPC ---
DCP: continued: Case discussed in Team Rounds and then met now with pt She was in middle of a session with PT Rocio who notes that pt continues to be a limiting factor for pt. Pt confirms she is planning to d/c to her home with help of my ulyssesa Alberto who will stay with her. She says her niece will also be coming to stay with her for a few days. PT/OT are supportive of this home plan. P: home when stable for same.
[2019-11-06] MEDS: HYDROMORPHONE 2 MG TABLET 4 MG PO ×2 (16:33→20:13)
[2019-11-06 20:00] VITALS: BP 131/63; PULSE 90; RESP 18; TEMP 36.7; O2SAT 95
[2019-11-06] MEDS: SENNOSIDES 8.6 MG TABLET 17.2 MG PO (20:09)
[2019-11-06] MEDS: SERTRALINE 25 MG TABLET PO (20:12)
[2019-11-07] MEDS: HYDROMORPHONE 2 MG TABLET 4 MG PO ×2 (00:03→03:52)
[2019-11-07 00:30] VITALS: BP 131/72; PULSE 96; RESP 16; TEMP 37.8; O2SAT 95
[2019-11-07 01:28] VITALS: TEMP 36.9
[2019-11-07 04:20] VITALS: BP 129/72; PULSE 91; RESP 16; TEMP 37.6; O2SAT 92
[2019-11-07] MEDS: hydrOXYzine pamoate 25 MG CAPSULE PO (07:45)
[2019-11-07] MEDS: ONDANSETRON 4 MG/2 ML INJ IV (07:49)
--- NOTE | 2019-11-07 09:41 | PM.DS.1 ---
History of Present Illness History of Present Illness Date Patient Seen: 11/07/19 Time Patient Seen: 09:41 Chief complaint: [id number] Narrative: Patient has been having chronic back pain and worsening lumbar radiculopathy. Patient had prior lumbar fusion and was having no symptoms until approximately a year ago. Patient failed multiple conservative management with worsening pain weakness and numbness in her lower extremity. Patient has been having difficulty performing activity of daily living. After discussing risks benefits of treatment options, patient elected proceed with surgery. Discharge Providers Provider Date of admission: 11/04/19 06:06 Discharge Date: 11/07/19 Primary care physician: Mihaela Sanders DO Consults: 10/29/19 15:08 Consult to Anesthesiology Routine Comment: Consulting Provider: Anesthesiologist Reason for consultation: PAC courtesy re: Apnea, severe hypoxia with conscious sedation Consult to Respiratory Therapy Evaluate & Treat Comment: INPT 11/04-NICOLÁS-does not tolerate CPAP Physician Instructions: Evaluate and treat 11/04/19 07:22 Consult to Respiratory Therapy Evaluate & Treat Comment: Physician Instructions: Evaluate and treat 11/04/19 13:30 Consult to Occupational Therapy Evaluate & Treat Comment: Physician Instructions: Evaluate and treat Consult to Physical Therapy Evaluate & Treat Comment: Physician Instructions: Evaluate and Treat Discharge provider: May Mclaughlin PA-C Summary Hospital Course Discharge Diagnosis: s/p lumbar fusion Sleep apnea Osteoarthritis Lumbar spondylosis Lumbar spinal stenosis Hypothyroid Hyperlipidemia Cervical cancer Atrial fibrillation Thyroid cancer Hospital Course: Monserrat was admitted for TLIF with Dr. Carcamo. Hospital course was remarkable for postoperative nausea, dizziness, and vomiting. Patient had pain control issues throughout her stay. Her pain was well controlled with Dilaudid 2-4 mg every 4-6 hours. Muscle spasms controlled with Vistaril. She has provided us prescription for Zofran for home. She is eating and voiding at time of discharge. She did have acute urinary retention postop day 1 but this resolved. Worked with physical therapy throughout her stay. She is aware of her precautions of no excessive bending, lifting, or twisting. Exam Vital Signs (past 8 hours): - 11/07/19 04:20 Temperature 99.6 F Pulse Rate 91 H Respiratory Rate 16 Blood Pressure 129/72 Pulse Oximetry 92 Oxygen Delivery Method Room Air Oxygen Flow Rate 0 Narrative Exam Narrative: Patient lying in bed in no acute distress. She is alert orient x3. Calves are soft, compressible, nontender bilaterally. Back dressing new cover site dressing applied before discharge. She is able to actively dorsiflex and plantar flex. Left anterior thigh numbness. She did receive a lot of Dilaudid overnight and has been vomiting this morning. Patient was provided Zofran, and Vistaril and this resolved the vomiting and nausea. Advised her to avoid taking 4 mg of Dilaudid at home. Objective Labs Result Diagrams: 11/05/19 06:47 Discharge Plan Discharge Plan Patient Disposition: Home Discharge orders & Medications Prescriptions: New acetaminophen 325 mg Tablet 650 mg PO Q6HR PRN (Reason: Pain, Mild (1-3)) Qty: 30 RF: 0 docusate sodium [DOK] 100 mg Capsule 100 mg PO BID Qty: 30 RF: 0 hydromorphone 2 mg Tablet 2 mg PO Q3H PRN (Reason: Pain, Severe (7-10)) Qty: 56 RF: 0 hydroxyzine pamoate 25 mg Capsule 25 mg PO Q6-8H PRN (Reason: Nausea And Vomiting) Qty: 60 RF: 0 ondansetron HCl [Zofran] 4 mg tablet 4 mg PO Q6H PRN (Reason: nausea and vomiting) Qty: 20 RF: 0 Continued levothyroxine [Synthroid] 137 mcg Tablet 137 mcg PO DAILY RF: 0 sertraline 25 mg Tablet 25 mg PO BEDTIME RF: 0 cetirizine 10 mg Capsule 10 mg PO DAILY PRN (Reason: Seasonal allergies, cough) RF: 0 lorazepam 0.5 MG tablet 0.5 mg PO Q6HP PRN (Reason: Anxiety) RF: 0 Discontinued ibuprofen 200 mg Capsule 200 - 800 mg PO DAILY PRN (Reason: Pain) RF: 0 Follow up/Referrals: Mihaela Sanders DO [Primary Care Provider] - Geoff Carcamo MD [Physician] - Diet/Activity/Treatments Activity: No excessive bending, lifting, or twisting Skin/Wound/Dressing Care Report to your healthcare provider any signs of infection, such as:: chills, fever and increased pain Dressing: leave in place until appointment Visit Report/Discharge Packet Instructions: DI for Constipation, How to Prevent Falls, DI for Prescription Opioid Use, Ondansetron, Hydromorphone, Hydroxyzine, DI for Transforaminal Lumbar Interbody Fusion Visit Report Forms: Patient Portal/API, Stroke Signs & Symptoms Discharge Data Primary Care Provider: Mihaela Sanders
--- NOTE | 2019-11-07 09:57 | PT.IPTN ---
Current Diagnoses Other spondylosis with radiculopathy, lumbar region (11/04/19) Spinal stenosis, lumbar region without neurogenic claudication (11/04/19) Arthrodesis status (11/04/19) Surgery Performed Operation Date: 11/04/19 07:45 Actual Procedures p L4-S1 HWR removal,L5-S1 TLIF,L4-5 exploration of fusion w/poss revision PSF,L3-S1 posterior vida Carcamo MD Physical Therapy Treatment Note M2 PT-IP Current Condition Start: 11/05/19 12:00 Freq: NEEDED Status: Active Protocol: Document 11/05/19 09:50 AB (Rec: 11/05/19 12:15 AB [id number]) Physical Therapy Current Condition Current Condition Evaluation Date 11/05/19 Treatment Diagnosis s/p L5S1 posterior fusion; L3- 5 lami; difficulty in walking Onset Date 11/04/2019 Precautions Lumbar Precautions Log Roll,No Twisting,Limit Bending,Lifting Restriction of 10 lbs,Gait Belt above Incisional Area M3 PT-IP Subjective Start: 11/05/19 12:00 Freq: NEEDED Status: Active Protocol: Document 11/07/19 09:57 AB (Rec: 11/07/19 12:26 AB [id number]) Subjective Physical Therapy Visit Type Type Treatment Note Visit Start Time 11:03 Visit Stop Time 11:26 Total Visit Minutes 23 Number of CAPACITOR INSPECTOR Visits 0 Physical Therapy Visit Comments Patient Comments checked on pt at [id number] and was not feeling well due to nausea. nurse stated that she is nauseated and maybe see her later. checked back on pt and agreed to do PT. Therapy Pain Assessment Pain When Pain Assessed At Rest Pain Present Pain Present Pain Reported Location Left Leg Intensity 6 Scale Used Numeric (1 - 10) Pain Management Techniques Re-positioning,Timing of Activity with Medications M4 PT-IP Mobility and Gait Start: 11/05/19 12:00 Freq: NEEDED Status: Active Protocol: Document 11/07/19 09:57 AB (Rec: 11/07/19 12:26 AB [id number]) PT-Bed Mobility Assessment Supine to Sit Supine to Sit Standby Assistance PT-Transfer Assessment Sit to and From Stand Sit to and from Stand Standby Assistance,1 Person Assistance Equipment Transfer Assistive Device Bed Rail,Front Wheeled Walker Orthotic/Prosthetic Devices or Brace: No Gait Assessment Gait Gait Assistance Required: Standby Assistance,Contact Guard Assist Distance (Feet) 250 Able to Maintain Weight Bearing Status Yes During Gait Assistive Devices Assistive Device Gait Belt,Front Wheeled Walker Orthotic/Prosthetic Devices or Brace: No Gait Deviations General Gait Pattern Antalgic,Decreased Stride Length,Decreased Feet Clearance Factors Limiting Gait Function Factors Limiting Gait Function Decreased Activity Tolerance, Decreased Strength,Limited Range of Motion,Pain,Poor Balance,Poor Safety Awareness Stair Climbing Assessment Evaluation Level of Assist On Stairs Minimal Assistance,Moderate Assistance,1 Person Assistance Devices Stair Climbing Assistive Devices Straight Cane Technique/Endurance Stair Climbing Direction Ascend and Descend Stair Climbing Technique Step to Step Number of Steps Climbed 3 Stair Climbing Set # Repetitions (reps) 2 M5 PT-IP Objective Assessments Start: 11/05/19 12:00 Freq: NEEDED Status: Active Protocol: Document 11/05/19 09:50 AB (Rec: 11/05/19 12:15 AB [id number]) Orientation Orientation/Cognition Level of Alertness Alert Orientation Name,Place,Situation Safety Awareness Decreased Safety Awareness Gross Range of Motion Lower Extremity ROM Assessment Within Functional Limits Strength Comments Strength Comments RLE: 3+/5 LLE: 4-/5 Coordination Assessment Gross Coordination Gross Coordination WNL Muscle Tone Muscle Tone WNL Yes M6 PT-IP Treatment Start: 11/05/19 12:00 Freq: NEEDED Status: Active Protocol: Document 11/07/19 09:57 AB (Rec: 11/07/19 12:26 AB [id number]) Physical Therapy Treatment Education Education Provided Precautions,Safety M7 PT-IP Assessment and Plan Start: 11/05/19 12:00 Freq: NEEDED Status: Active Protocol: Document 11/07/19 09:57 AB (Rec: 11/07/19 12:26 AB [id number]) PT Summary Assessment and Plan Potential Rehabilitation Potential Good Summary Impairments Pain,ROM,Strength,Balance, Coordination,Sensation,Tone, Cognition,Bed Mobility, Transfers,Gait,Activity Tolerance Progress Towards Goals Slow Progress due to Pain Assessment Summary arranged 10 am caregiver training for today but pt was not feeling too well and significant other step out for prescription medication refill. will conduct caregiver training in the afternoon. pt continues to require CGA with ambulation using FWW and cues to maintain back precautions. pt has d/c plan for today but will assess how caregiver training goes for safe d/c plan. Goals Bed Mobility Goal Standby Assistance Transfer Goal Standby Assistance,Front Wheeled Walker Gait Goal Standby Assistance,Front Wheel Walker Gait Distance 150 Other Goals up/down 3 steps using SPC/PROFESSOR OF VEGETABLE SCIENCE CGA Days to Meet Goals 5 Frequency of Treatment Frequency Of Treatment Twice a Day Treatment Plan Physical Therapy Treatment Plan Bed Mobility Training,Transfer Training,Gait Training, Therapeutic Exercise,Balance Retraining,Post Op Education, Discharge Planning,Hot or Cold Pack,Neuromuscular Re-ed, Coordination Retraining,Manual Therapy Other Recommendations and Next Treatment ambulation, stair climbing, Focus caregiver training when appropriate Recommendations To Nursing Amount of Assist Needed 1 Person Assist Discharge Recommendations PT Discharge Recommendations Home with Assistance Transportation Needs at Discharge Private Vehicle
--- NOTE | 2019-11-07 10:09 | PC.NURSE ---
Addendum entered by Honey Gibson R.N. 11/07/19 14:28: DC - after cleared by [facility], pt iv dc'd, dsg changed to coversite, parallel stapled incisions w/o redness or drainage, belongings gathered, including cell phone and wash helper, clothing, jackson, tsf to wc, escorted to so's car by radio station engineer. Addendum entered by Honey Gibson R.N. 11/07/19 11:34: [facility] - removed barrier dsg, old serosang staining, no active drainage, parallel stapled incisions intact, replaced with coversite. Addendum entered by Honey Gibson R.N. 11/07/19 11:21: MS - pt up ambul hallway w/fww, PT standby, gait steady. Addendum entered by Honey Gibson R.N. 11/07/19 10:59: GI/PAIN/INTEG - pt dozed after earlier vistaril, awakened easily and states feeling better, does have headache, discussed pain mgt, dosages, did given 650mg po tylenol with pudding. Barrier dsg with shadow drainage, agrees to l change prior to dc when up this afternoon with phys therapy. Original Note: AM NOTE - pt awake at bedside shift report, states back discomfort 6 on scale 0/10, stand by to br w/void, on return had onset nausea and small qty approx 25ml emesis, ret to bed, given 4mg po zofran and 25mg po vistaril with vistaril and cracker, cool cloth to forehead.
[2019-11-07] MEDS: ACETAMINOPHEN 325 MG TABLET 650 MG PO (10:55)
[2019-11-07] MEDS: DOCUSATE 100 MG CAPSULE PO (10:55)
[2019-11-07] MEDS: LEVOTHYROXINE 137 MCG TABLET PO (10:55)
[2019-11-07 12:00] VITALS: BP 102/63; PULSE 78; RESP 16; TEMP 37; O2SAT 92
--- NOTE | 2019-11-07 14:03 | PT.IPTN ---
Current Diagnoses Other spondylosis with radiculopathy, lumbar region (11/04/19) Spinal stenosis, lumbar region without neurogenic claudication (11/04/19) Arthrodesis status (11/04/19) Surgery Performed Operation Date: 11/04/19 07:45 Actual Procedures p L4-S1 HWR removal,L5-S1 TLIF,L4-5 exploration of fusion w/poss revision PSF,L3-S1 posterior vida Carcamo MD Physical Therapy Treatment Note M2 PT-IP Current Condition Start: 11/05/19 12:00 Freq: NEEDED Status: Discharge Protocol: Document 11/05/19 09:50 AB (Rec: 11/05/19 12:15 AB [id number]) Physical Therapy Current Condition Current Condition Evaluation Date 11/05/19 Treatment Diagnosis s/p L5S1 posterior fusion; L3- 5 lami; difficulty in walking Onset Date 11/04/2019 Precautions Lumbar Precautions Log Roll,No Twisting,Limit Bending,Lifting Restriction of 10 lbs,Gait Belt above Incisional Area M3 PT-IP Subjective Start: 11/05/19 12:00 Freq: NEEDED Status: Discharge Protocol: Document 11/07/19 14:03 AB (Rec: 11/07/19 16:47 AB [id number]) Subjective Physical Therapy Visit Type Type Treatment Note Visit Start Time 14:03 Visit Stop Time 14:17 Total Visit Minutes 14 Number of REFUGE WORKER Visits 0 Physical Therapy Visit Comments Patient Comments pt agreeable to do PT; pt's significant other present for caregiver training Therapy Pain Assessment Pain When Pain Assessed At Rest Pain Present Pain Present Pain Reported Location Lower Back Intensity 5 Scale Used Numeric (1 - 10) Pain Management Techniques Re-positioning,Timing of Activity with Medications M4 PT-IP Mobility and Gait Start: 11/05/19 12:00 Freq: NEEDED Status: Discharge Protocol: Document 11/07/19 14:03 AB (Rec: 11/07/19 16:47 AB [id number]) PT-Bed Mobility Assessment Supine to Sit Supine to Sit Standby Assistance Sit to Supine Sit to Supine Standby Assistance Scooting Scooting to Edge of Bed Standby Assistance PT-Transfer Assessment Sit to and From Stand Sit to and from Stand Contact Guard Assistance,1 Person Assistance,Use of Upper Extremities Equipment Transfer Assistive Device Gait Belt,Front Wheeled Walker Orthotic/Prosthetic Devices or Brace: No Comments Mobility Comments caregiver training conducted. educated significant other on pt's back precautions and log roll and how to assist and cue pt. educated on use of safety belt and how to assist pt and was able to put safety olga pt. significant other was able to assist and cue pt with bed mobility, sit to stand and ambulation using FWW . pt completed up/down steps using SPC and NAILHEAD SETTER with significant other assisting and completed safely. Gait Assessment Gait Gait Assistance Required: Contact Guard Assist Distance (Feet) 125 Assistive Devices Assistive Device Gait Belt,Front Wheeled Walker Orthotic/Prosthetic Devices or Brace: No Gait Deviations General Gait Pattern Antalgic,Decreased Stride Length,Decreased Feet Clearance Factors Limiting Gait Function Factors Limiting Gait Function Decreased Activity Tolerance, Decreased Strength,Limited Range of Motion,Pain,Poor Balance,Poor Safety Awareness Stair Climbing Assessment Evaluation Level of Assist On Stairs Minimal Assistance,Moderate Assistance,1 Person Assistance Devices Stair Climbing Assistive Devices Straight Cane Technique/Endurance Stair Climbing Direction Ascend and Descend Stair Climbing Technique Step to Step Number of Steps Climbed 3 Stair Climbing Set # Repetitions (reps) 1 M5 PT-IP Objective Assessments Start: 11/05/19 12:00 Freq: NEEDED Status: Discharge Protocol: Document 11/05/19 09:50 AB (Rec: 11/05/19 12:15 AB [id number]) Orientation Orientation/Cognition Level of Alertness Alert Orientation Name,Place,Situation Safety Awareness Decreased Safety Awareness Gross Range of Motion Lower Extremity ROM Assessment Within Functional Limits Strength Comments Strength Comments RLE: 3+/5 LLE: 4-/5 Coordination Assessment Gross Coordination Gross Coordination WNL Muscle Tone Muscle Tone WNL Yes M6 PT-IP Treatment Start: 11/05/19 12:00 Freq: NEEDED Status: Discharge Protocol: Document 11/07/19 14:03 AB (Rec: 11/07/19 16:47 AB [id number]) Physical Therapy Treatment Education Education Provided Precautions,Weight Bearing Status,Safety M7 PT-IP Assessment and Plan Start: 11/05/19 12:00 Freq: NEEDED Status: Discharge Protocol: Document 11/07/19 14:03 AB (Rec: 11/07/19 16:47 AB [id number]) PT Summary Assessment and Plan Potential Rehabilitation Potential Good Summary Impairments Pain,ROM,Strength,Balance, Coordination,Sensation,Tone, Cognition,Bed Mobility, Transfers,Gait,Activity Tolerance Progress Towards Goals Slow Progress due to Pain Assessment Summary caregiver training conducted and significant other was able to assist pt safely. pt plans to go home today. Goals Bed Mobility Goal Standby Assistance Transfer Goal Standby Assistance,Front Wheeled Walker Gait Goal Standby Assistance,Front Wheel Walker Gait Distance 150 Other Goals up/down 3 steps using SPC/NAILHEAD SETTER CGA Days to Meet Goals 5 Frequency of Treatment Frequency Of Treatment Twice a Day Treatment Plan Physical Therapy Treatment Plan Bed Mobility Training,Transfer Training,Gait Training, Therapeutic Exercise,Balance Retraining,Post Op Education, Discharge Planning,Hot or Cold Pack,Neuromuscular Re-ed, Coordination Retraining,Manual Therapy Other Recommendations and Next Treatment ambulation, stair climbing, Focus caregiver training when appropriate Recommendations To Nursing Amount of Assist Needed 1 Person Assist Discharge Recommendations PT Discharge Recommendations Home with Assistance Transportation Needs at Discharge Private Vehicle
== END 2019-11-07 14:45 | disposition home or self-care (01) | DRG 454 ==
PROVIDERS: Admitting Provider Orthopaedic Surgery Orthopaedic Surgery of the Spine; PCP Internal Medicine; Referring Provider Orthopaedic Surgery Orthopaedic Surgery of the Spine; Visit Provider Orthopaedic Surgery Orthopaedic Surgery of the Spine
PROC: 0SG30AJ Fusion of Lumbosacral Joint with Interbody Fusion Device, Posterior Approach, Anterior Column, Open Approach (ICD-10-PCS; principal; 2019-11-04 07:45)
DX: M48.061 Spinal stenosis, lumbar region without neurogenic claudication (principal); M96.0 Pseudarthrosis after fusion or arthrodesis; R05 Cough; G47.33 Obstructive sleep apnea (adult) (pediatric); M48.07 Spinal stenosis, lumbosacral region; M47.27 Other spondylosis with radiculopathy, lumbosacral region; M47.26 Other spondylosis with radiculopathy, lumbar region; E03.9 Hypothyroidism, unspecified; R11.2 Nausea with vomiting, unspecified; R42 Dizziness and giddiness; G89.18 Other acute postprocedural pain; R33.9 Retention of urine, unspecified; M62.838 Other muscle spasm; Z98.1 Arthrodesis status; Z85.850 Personal history of malignant neoplasm of thyroid; Z87.891 Personal history of nicotine dependence
CPT/HCPCS: 36415; 72100; 76000; 85014; 85018; 97116; 97162; 97165; 97530; 97535; C1776; C9290; J0330; J0690; J1100; J1170; J2250; J2405; J2704; J3010; J3410